=== PATIENT | female | born 1960 | race Two or more races ===

== ENCOUNTER 2022-06-05 07:58 | Day surgery (SDC) | payer MEDICAID, OTHER ==
[2022-06-05] VITALS (9 sets, daily range): BP systolic 92–136; BP diastolic 56–76
[~2022-06-05] VITALS: Ht 162.6 cm; Wt 87.5 kg
[~2022-06-05 07:58] MED LIST: AMLO-489 PO; BECL80AE9 IN; BUSP10TA90 PO; CHOL20006 PO; CITA-77 PO; CLOP75TA70 PO; ERTU5TAB PO; GLIP5TAB12 PO; LISI-716 PO; METF-370 PO; MONT-8 PO; OMEP20TA PO; PRAV20TA3 PO; SEMA2INJ SC; TRIA37.55 PO
[2022-06-05] MEDS ORDERED: CITA10TA70 PO (08:41)
[2022-06-05] MEDS ORDERED: CIME200T6 PO (08:41)
[2022-06-05] MEDS ORDERED: ALBU108A5 IN (08:41)
[2022-06-05] MEDS ORDERED: LIDOCAINE 2%HCL (LOCAL ANESTH.) INJ 10ml MDV ONE (09:41)
[2022-06-05] MEDS ORDERED: SODIUM CHL 0.9% 0 ML ONE (09:41)
[2022-06-05] MEDS ORDERED: fentaNYL CITRATE 100 MCG/2 ML VL ONE (09:41)
[2022-06-05] MEDS ORDERED: IODIXANOL 320MG/ML 100ML BTL IV ONE (09:41)
[2022-06-05] MEDS ORDERED: VERAPAMIL 2.5MG/ML INJ 2ML VIAL IV ONE (09:41)
[2022-06-05] MEDS ORDERED: ANGIOMAX 250 MG VIAL IV ONE (09:41)
[2022-06-05] MEDS ORDERED: MIDAZOLAM HCL 2MG/2ML 2ml VIAL (1mg/ml) ONE (09:41)
[2022-06-05] MEDS ORDERED: HEPARIN SODIUM (PORCINE) 5000 UNITS/ML 1ML VIAL ONE (10:03)
== END 2022-06-05 12:15 | disposition home or self-care (01) ==
LOC: CATH 07:58
PROVIDERS: ATTEND Internal Medicine
DX: I25.118 Atherosclerotic heart disease of native coronary artery with other forms of angina pectoris (principal); R94.39 Abnormal result of other cardiovascular function study; E11.9 Type 2 diabetes mellitus without complications; I11.0 Hypertensive heart disease with heart failure; E78.5 Hyperlipidemia, unspecified; I50.9 Heart failure, unspecified; Z79.899 Other long term (current) drug therapy; Z79.84 Long term (current) use of oral hypoglycemic drugs
CPT/HCPCS: 93458; C1769; C1894; J1644; J2001; J2250; J3010; Q9967; 99152

== ENCOUNTER 2022-06-10 16:51 | Emergency (ER) | payer MEDICAID, OTHER ==
[~2022-06-10] VITALS: Ht 162.6 cm; Wt 85.9 kg
[~2022-06-10 16:51] MED LIST changes: +ALBU108A5 IN; +CIME200T6 PO; -GLIP5TAB12 PO; -LISI-716 PO; -TRIA37.55 PO
[2022-06-10] MEDS ORDERED: HYDR1TAB97 PO (20:12)
[2022-06-10] MEDS ORDERED: HYDROcodone-ACET 5/325MG TAB PO ONE (20:15)
[2022-06-10 20:22] VITALS: BP 163/73
== END 2022-06-10 20:34 | disposition home or self-care (01) ==
LOC: ER 16:51
DX: S50.11XA Contusion of right forearm, initial encounter (principal); J45.909 Unspecified asthma, uncomplicated; I11.0 Hypertensive heart disease with heart failure; I50.9 Heart failure, unspecified; E11.9 Type 2 diabetes mellitus without complications; E78.5 Hyperlipidemia, unspecified; F17.210 Nicotine dependence, cigarettes, uncomplicated; Z86.73 Personal history of transient ischemic attack (TIA), and cerebral infarction without residual deficits; Z98.51 Tubal ligation status; Z90.49 Acquired absence of other specified parts of digestive tract; X58.XXXA Exposure to other specified factors, initial encounter; Y93.89 Activity, other specified; Y92.89 Other specified places as the place of occurrence of the external cause; Y99.8 Other external cause status
CPT/HCPCS: 93971